=== PATIENT | female | born 1930 | race Caucasian/White ===

== ENCOUNTER 2017-08-11 12:30 | Inpatient (IN) | payer OTHER, MEDICAID ==
[~2017-08-11] VITALS: Ht 160 cm; Wt 55.9 kg
[2017-08-11 14:57] LABS: BASOPHIL % 0.6 % (0-2)
[2017-08-11 14:59] LABS: CALCIUM 8.9 mg/dL (8.5-10.1); CARBON DIOXIDE 22.2 mmol/L (21-32); CHLORIDE SERUM 108 mmol/L (98-107); CREATININE SERUM 0.8 mg/dL (0.6-1.0); GLUCOSE SERUM 117 mg/dL (74-106); POTASSIUM SERUM 4.3 mmol/L (3.5-5.1); SODIUM SERUM 140 mmol/L (136-145)
[2017-08-11 15:03] LABS: ALKALINE PHOSPHATASE 148 U/L (46-116); ALT/SGPT 29 U/L (14-59); AST/SGOT 47 U/L (15-37); BILIRUBIN TOTAL 0.6 mg/dL (0.20-1.00); CHOLESTEROL 146 mg/dL (<200); HDL CHOLESTEROL 61 mg/dL (40-60); PHOSPHOROUS 3.8 mg/dL (2.5-4.9); TOTAL PROTEIN, SERUM 6.7 g/dL (6.4-8.2); URIC ACID 4.1 mg/dL (2.6-6.0)
[2017-08-11 15:04] LABS: PLATELET COUNT 52 x10^3mcL (130-400); RED CELL DISTRIBUTION WIDTH 16.9 % (11.5-14.5)
[2017-08-11 16:34] LABS: FREE T4 0.94 ng/dL (0.76-1.46); FREE THYROXINE INDEX 2.3 ug/dL (1.4-4.5); T3 TOTAL 0.95 ng/mL; T4(THYROXINE) 7.1 ug/dL (4.7-13.3)
[2017-08-11] MEDS ORDERED: LISINOPRIL10 MG PO (16:47)
[2017-08-11] MEDS ORDERED: ADVIL200 MG PO (16:47)
[2017-08-11 20:00] VITALS: BP 185/58
[2017-08-11 22:27] VITALS: BP 189/67
[2017-08-11 23:49] VITALS: BP 102/42
[2017-08-12] VITALS (8 sets, daily range): BP systolic 101–148; BP diastolic 46–63
[2017-08-12 07:16] LABS: CALCIUM 8.4 mg/dL (8.5-10.1); CHLORIDE SERUM 109 mmol/L (98-107); CREATININE SERUM 0.9 mg/dL (0.6-1.0); GLUCOSE SERUM 107 mg/dL (74-106); MAGNESIUM 1.9 mg/dL (1.8-2.4); PHOSPHOROUS 3.8 mg/dL (2.5-4.9); POTASSIUM SERUM 3.9 mmol/L (3.5-5.1); SODIUM SERUM 140 mmol/L (136-145)
[2017-08-12 07:40] LABS: BASOPHIL % 0.5 % (0-2)
[2017-08-12 07:41] LABS: RED CELL DISTRIBUTION WIDTH 16.6 % (11.5-14.5)
[2017-08-12 07:43] LABS: PLATELET COUNT 49 x10^3mcL (130-400)
[2017-08-13 05:40] VITALS: BP 138/57
[2017-08-13 06:00] LABS: BASOPHIL % 0.6 % (0-2)
[2017-08-13 06:17] LABS: PLATELET COUNT 67 x10^3mcL (130-400); RED CELL DISTRIBUTION WIDTH 16.9 % (11.5-14.5)
[2017-08-13 06:23] LABS: CALCIUM 8.6 mg/dL (8.5-10.1); CARBON DIOXIDE 22.6 mmol/L (21-32); CHLORIDE SERUM 109 mmol/L (98-107); GLUCOSE SERUM 99 mg/dL (74-106); POTASSIUM SERUM 3.6 mmol/L (3.5-5.1); SODIUM SERUM 142 mmol/L (136-145)
[2017-08-13 09:33] VITALS: BP 163/58
[2017-08-13 13:53] VITALS: BP 158/55
[2017-08-13 16:19] VITALS: BP 157/61
[2017-08-13 21:44] VITALS: BP 169/64
[2017-08-14 05:35] VITALS: BP 134/61
[2017-08-14 06:15] LABS: BASOPHIL % 0.4 % (0-2)
[2017-08-14 06:21] LABS: CALCIUM 8.6 mg/dL (8.5-10.1); CHLORIDE SERUM 107 mmol/L (98-107); CREATININE SERUM 1.1 mg/dL (0.6-1.0); GLUCOSE SERUM 106 mg/dL (74-106); PLATELET COUNT 64 x10^3mcL (130-400); RED CELL DISTRIBUTION WIDTH 16.5 % (11.5-14.5); SODIUM SERUM 140 mmol/L (136-145)
[2017-08-14 09:11] VITALS: BP 144/58
[2017-08-14] MEDS ORDERED: ZES20 PO (09:53)
[2017-08-14] MEDS ORDERED: ALD50 PO (09:53)
[2017-08-14] MEDS ORDERED: TRAZODONE50 M1 PO (11:04)
[2017-08-14] MEDS ORDERED: NORCO1 TA2 PO (11:04)
[2017-08-14 14:03] VITALS: BP 138/59
[2017-08-14 14:28] VITALS: BP 138/59
== END 2017-08-14 15:10 | disposition home health service (06) | DRG 432 ==
LOC: ED 12:30 → DU 14:50 → ED 14:55 → DU 15:47
PROVIDERS: Emergency Medicine; ADMIT Family Medicine
DX: K74.69 Other cirrhosis of liver (principal); N17.0 Acute kidney failure with tubular necrosis; I50.43 Acute on chronic combined systolic (congestive) and diastolic (congestive) heart failure; B19.9 Unspecified viral hepatitis without hepatic coma; R18.8 Other ascites; E44.0 Moderate protein-calorie malnutrition; I11.0 Hypertensive heart disease with heart failure; I16.0 Hypertensive urgency; D69.59 Other secondary thrombocytopenia; D64.9 Anemia, unspecified; R73.03 Prediabetes; Z68.21 Body mass index [BMI] 21.0-21.9, adult; Z95.0 Presence of cardiac pacemaker
CPT/HCPCS: 82962; 83880; 84439; J0360; J1885; J1940; J7030; J7050; P9035; Q0163

== ENCOUNTER 2017-08-16 07:23 | Emergency (ER) | payer OTHER, MEDICAID ==
[~2017-08-16] VITALS: Ht 152.4 cm; Wt 55.8 kg
[~2017-08-16 07:23] MED LIST: ADVIL200 MG PO; ALD50 PO; LISINOPRIL10 MG PO; NORCO1 TA2 PO; TRAZODONE50 M1 PO; ZES20 PO
[2017-08-16 08:47] LABS: BASOPHIL % 0.5 % (0-2); PLATELET COUNT 63 x10^3mcL (130-400); RED CELL DISTRIBUTION WIDTH 16.5 % (11.5-14.5)
[2017-08-16 08:51] LABS: T4(THYROXINE) 8.8 ug/dL (4.7-13.3)
[2017-08-16 09:04] LABS: microscopic required? NO
[2017-08-16 09:21] LABS: UA SPECIFIC GRAVITY <=1.005 (1.005-1.035); urine erythrocyte NEGATIVE (NEGATIVE)
[2017-08-16 12:20] VITALS: BP 136/59
== END 2017-08-16 12:20 | disposition home or self-care (01) ==
LOC: ED 07:23
PROVIDERS: Emergency Medicine
DX: K74.60 Unspecified cirrhosis of liver (principal); D69.6 Thrombocytopenia, unspecified; I10 Essential (primary) hypertension; H54.42 Blindness, left eye, normal vision right eye; Z95.0 Presence of cardiac pacemaker; Z90.89 Acquired absence of other organs
CPT/HCPCS: J1885

== ENCOUNTER 2018-08-04 11:39 | Inpatient (IN) | payer OTHER, MEDICAID ==
[~2018-08-04] VITALS: Ht 154.9 cm; Wt 59.1 kg
[2018-08-04 12:07] VITALS: Ht 154.9 cm; Wt 59.1 kg
[2018-08-04 12:53] LABS: BASOPHIL % 0.6 % (0-2)
[2018-08-04 13:01] LABS: CALCIUM 8.7 mg/dL (8.5-10.1); CARBON DIOXIDE 24.7 mmol/L (21-32); CHLORIDE SERUM 102 mmol/L (98-107); CREATININE SERUM 1.1 mg/dL (0.6-1.0); GLUCOSE SERUM 150 mg/dL (74-106); SODIUM SERUM 129 mmol/L (136-145)
[2018-08-04 13:07] LABS: ALKALINE PHOSPHATASE 134 U/L (46-116); ALT/SGPT 20 U/L (14-59); AST/SGOT 39 U/L (15-37); BILIRUBIN TOTAL 0.9 mg/dL (0.20-1.00); LIPASE 269 IU/L (73-393); TOTAL PROTEIN, SERUM 6.8 g/dL (6.4-8.2)
[2018-08-04 13:08] LABS: ALBUMIN 2.8 g/dL (3.4-5.0)
[2018-08-04 13:19] LABS: PLATELET COUNT 86 x10^3mcL (130-400); RED CELL DISTRIBUTION WIDTH 17.7 % (11.5-14.5)
[2018-08-04 14:11] LABS: UA SPECIFIC GRAVITY 1.015 (1.005-1.035); microscopic required? YES; urine erythrocyte TRACE (NEGATIVE)
[2018-08-04] MEDS ORDERED: LASIX40 MG PO (14:11)
[2018-08-04 14:32] VITALS: BP 144/57
[2018-08-04 14:56] LABS: MAGNESIUM 2.1 mg/dL (1.8-2.4); PHOSPHOROUS 3.8 mg/dL (2.5-4.9)
[2018-08-04 15:02] LABS: CHOLESTEROL/HDL RATIO 2.5
[2018-08-04 15:04] LABS: T3 TOTAL 0.79 ng/mL
[2018-08-04 15:10] LABS: FREE T4 1.02 ng/dL (0.76-1.46); FREE THYROXINE INDEX 2.2 ug/dL (1.4-4.5); T4(THYROXINE) 6.8 ug/dL (4.7-13.3)
[2018-08-04 16:47] LABS: AMPHETAMINE QUAL UR NONE DETECTED (See below)
[2018-08-04 17:11] VITALS: BP 136/53
[2018-08-04 21:38] VITALS: BP 154/74
[2018-08-05] VITALS (11 sets, daily range): BP systolic 112–150; BP diastolic 40–65
[2018-08-05 06:07] LABS: BASOPHIL % 0.6 % (0-2)
[2018-08-05 06:33] LABS: CALCIUM 8.2 mg/dL (8.5-10.1); CHLORIDE SERUM 103 mmol/L (98-107); CREATININE SERUM 1.2 mg/dL (0.6-1.0); GLUCOSE SERUM 94 mg/dL (74-106); PHOSPHOROUS 3.9 mg/dL (2.5-4.9); PLATELET COUNT 68 x10^3mcL (130-400); POTASSIUM SERUM 4.9 mmol/L (3.5-5.1); RED CELL DISTRIBUTION WIDTH 17.7 % (11.5-14.5); SODIUM SERUM 132 mmol/L (136-145)
[2018-08-05 17:50] LABS: APPEARANCE FLUID BLOODY; SOURCE FLUID PARACENTESIS
[2018-08-05 17:51] LABS: COLOR FLUID RED; WBC FLUID 350 /cumm
[2018-08-05 17:54] LABS: LYMPHOCYTE FLUID 86 %; MONOCYTE FLUID 9 %; RBC FLUID 244000 /cumm
[2018-08-06 05:37] VITALS: BP 109/69
[2018-08-06 06:27] LABS: CALCIUM 8.3 mg/dL (8.5-10.1); CARBON DIOXIDE 20.7 mmol/L (21-32); CHLORIDE SERUM 104 mmol/L (98-107); CREATININE SERUM 1.2 mg/dL (0.6-1.0); GLUCOSE SERUM 88 mg/dL (74-106); PHOSPHOROUS 3.6 mg/dL (2.5-4.9); SODIUM SERUM 133 mmol/L (136-145)
[2018-08-06 06:34] LABS: BASOPHIL % 0.5 % (0-2)
[2018-08-06 06:46] LABS: PLATELET COUNT 70 x10^3mcL (130-400); RED CELL DISTRIBUTION WIDTH 17.7 % (11.5-14.5)
[2018-08-06 08:24] VITALS: BP 120/41
[2018-08-06] MEDS ORDERED: KEFLEX500 M1 PO (13:29)
[2018-08-06 13:45] VITALS: BP 120/41
== END 2018-08-06 14:30 | disposition home health service (06) | DRG 435 ==
LOC: ED 11:39 → MU 13:28
PROVIDERS: Emergency Medicine; Internal Medicine
DX: C22.0 Liver cell carcinoma (principal); N17.0 Acute kidney failure with tubular necrosis; J96.01 Acute respiratory failure with hypoxia; I50.33 Acute on chronic diastolic (congestive) heart failure; I81 Portal vein thrombosis; E87.1 Hypo-osmolality and hyponatremia; E44.0 Moderate protein-calorie malnutrition; R18.8 Other ascites; L03.115 Cellulitis of right lower limb; K76.81 Hepatopulmonary syndrome; K74.69 Other cirrhosis of liver; D69.59 Other secondary thrombocytopenia; D64.9 Anemia, unspecified; H54.62 Unqualified visual loss, left eye, normal vision right eye; Z95.0 Presence of cardiac pacemaker; Z68.21 Body mass index [BMI] 21.0-21.9, adult
CPT/HCPCS: 36600; 49083; 83880; 84439; 88344; C1729; J0696; J1940; J7030; J7050; P9047; Q0092

== ENCOUNTER 2018-08-25 11:23 | Emergency (ER) | payer OTHER, MEDICAID ==
[~2018-08-25] VITALS: Ht 152.4 cm; Wt 54.4 kg
[~2018-08-25 11:23] MED LIST changes: +KEFLEX500 M1 PO; +LASIX40 MG PO
[2018-08-25 11:30] VITALS: Ht 152.4 cm; Wt 54.4 kg
[2018-08-25 13:14] LABS: BASOPHIL % 0.9 % (0-2)
[2018-08-25 13:15] LABS: PLATELET COUNT 64 x10^3mcL (130-400); RED CELL DISTRIBUTION WIDTH 16.9 % (11.5-14.5)
[2018-08-25 13:29] LABS: CALCIUM 8.5 mg/dL (8.5-10.1); CHLORIDE SERUM 111 mmol/L (98-107); CREATININE SERUM 1.3 mg/dL (0.6-1.0); GLUCOSE SERUM 116 mg/dL (74-106); POTASSIUM SERUM 5.1 mmol/L (3.5-5.1); SODIUM SERUM 140 mmol/L (136-145)
[2018-08-25 13:34] LABS: ALKALINE PHOSPHATASE 163 U/L (46-116); ALT/SGPT 33 U/L (14-59); AST/SGOT 62 U/L (15-37); BILIRUBIN TOTAL 0.57 mg/dL (0.20-1.00); TOTAL PROTEIN, SERUM 6.8 g/dL (6.4-8.2)
[2018-08-25 13:35] LABS: ALBUMIN 2.7 g/dL (3.4-5.0)
[2018-08-25 15:20] VITALS: BP 129/59
== END 2018-08-25 15:30 | disposition home or self-care (01) ==
LOC: ED 11:23
PROVIDERS: Emergency Medicine
DX: K70.31 Alcoholic cirrhosis of liver with ascites (principal); I10 Essential (primary) hypertension; Z95.0 Presence of cardiac pacemaker; Z90.89 Acquired absence of other organs; Z88.6 Allergy status to analgesic agent
CPT/HCPCS: 49082; J2001; J7040; Q0092

== ENCOUNTER 2018-09-07 09:22 | Observation (INO) | payer OTHER, MEDICAID ==
[~2018-09-07] VITALS: Ht 152.4 cm; Wt 58.1 kg
[2018-09-07 09:38] VITALS: Ht 152.4 cm; Wt 58.1 kg
[2018-09-07 10:38] LABS: BASOPHIL % 0.9 % (0-2)
[2018-09-07 10:41] LABS: PLATELET COUNT 55 x10^3mcL (130-400); RED CELL DISTRIBUTION WIDTH 16.9 % (11.5-14.5)
[2018-09-07 10:51] LABS: CALCIUM 8.5 mg/dL (8.5-10.1); CARBON DIOXIDE 17.7 mmol/L (21-32); CHLORIDE SERUM 107 mmol/L (98-107); CREATININE SERUM 1.3 mg/dL (0.6-1.0); GLUCOSE SERUM 117 mg/dL (74-106); POTASSIUM SERUM 4.9 mmol/L (3.5-5.1); SODIUM SERUM 135 mmol/L (136-145)
[2018-09-07 10:55] LABS: ALKALINE PHOSPHATASE 156 U/L (46-116); ALT/SGPT 29 U/L (14-59); AST/SGOT 49 U/L (15-37); BILIRUBIN TOTAL 0.6 mg/dL (0.20-1.00); TOTAL PROTEIN, SERUM 6.4 g/dL (6.4-8.2)
[2018-09-07 10:56] LABS: ALBUMIN 2.4 g/dL (3.4-5.0)
[2018-09-07 11:54] LABS: microscopic required? YES; urine erythrocyte 1+ (NEGATIVE)
[2018-09-07 13:10] VITALS: BP 158/52
[2018-09-07 16:38] VITALS: BP 127/42
[2018-09-07 20:28] VITALS: BP 106/47
[2018-09-08 05:59] VITALS: BP 107/54
[2018-09-08 06:18] LABS: CALCIUM 7.9 mg/dL (8.5-10.1); CARBON DIOXIDE 17.8 mmol/L (21-32); CHLORIDE SERUM 113 mmol/L (98-107); CREATININE SERUM 1.4 mg/dL (0.6-1.0); GLUCOSE SERUM 117 mg/dL (74-106); MAGNESIUM 2.3 mg/dL (1.8-2.4); POTASSIUM SERUM 5.5 mmol/L (3.5-5.1); SODIUM SERUM 141 mmol/L (136-145)
[2018-09-08 08:45] VITALS: BP 104/53
[2018-09-08 12:55] VITALS: BP 114/65
[2018-09-08 13:00] VITALS: BP 114/65
== END 2018-09-08 13:22 | disposition home or self-care (01) | DRG 433 ==
LOC: ED 09:22 → DU 11:29
PROVIDERS: Emergency Medicine; Internal Medicine Pulmonary Disease
PROC: 0W9G3ZZ Drainage of Peritoneal Cavity, Percutaneous Approach (ICD-10-PCS; principal; 2018-09-07)
DX: K74.60 Unspecified cirrhosis of liver (principal); N39.0 Urinary tract infection, site not specified; K76.6 Portal hypertension; E46 Unspecified protein-calorie malnutrition; R18.8 Other ascites; I12.9 Hypertensive chronic kidney disease with stage 1 through stage 4 chronic kidney disease, or unspecified chronic kidney disease; N18.2 Chronic kidney disease, stage 2 (mild); D63.1 Anemia in chronic kidney disease; D69.59 Other secondary thrombocytopenia; Z68.24 Body mass index [BMI] 24.0-24.9, adult; Z95.0 Presence of cardiac pacemaker; R16.0 Hepatomegaly, not elsewhere classified
CPT/HCPCS: 49083; C1729; G0378; J0696; J2001; J3010; J7030; P9047; Q0092

== ENCOUNTER 2018-09-24 14:28 | Emergency (ER) | payer OTHER, MEDICAID ==
[~2018-09-24] VITALS: Ht 152.4 cm; Wt 58.1 kg
[2018-09-24 15:43] LABS: BASOPHIL % 0.8 % (0-2); PLATELET COUNT 63 x10^3mcL (130-400)
[2018-09-24 15:46] LABS: CALCIUM 8.3 mg/dL (8.5-10.1); CARBON DIOXIDE 23.1 mmol/L (21-32); CHLORIDE SERUM 105 mmol/L (98-107); CREATININE SERUM 1.4 mg/dL (0.6-1.0); GLUCOSE SERUM 125 mg/dL (74-106); POTASSIUM SERUM 4.8 mmol/L (3.5-5.1); SODIUM SERUM 135 mmol/L (136-145)
[2018-09-24 15:51] LABS: ALBUMIN 2.4 g/dL (3.4-5.0); ALKALINE PHOSPHATASE 160 U/L (46-116); ALT/SGPT 25 U/L (14-59); AST/SGOT 47 U/L (15-37); BILIRUBIN TOTAL 0.5 mg/dL (0.20-1.00); LIPASE 228 IU/L (73-393); TOTAL PROTEIN, SERUM 6.4 g/dL (6.4-8.2)
[2018-09-24 20:06] LABS: APPEARANCE FLUID HAZY; COLOR FLUID YELLOW; LYMPHOCYTE FLUID 93 %; RBC FLUID 453 /cumm; SOURCE FLUID PERITONEAL; WBC FLUID 68 /cumm
[2018-09-24 20:08] VITALS: BP 127/61
== END 2018-09-24 20:08 | disposition home or self-care (01) ==
LOC: ED 14:28
PROVIDERS: Emergency Medicine
DX: R18.8 Other ascites (principal); I10 Essential (primary) hypertension; Z90.49 Acquired absence of other specified parts of digestive tract; Z98.890 Other specified postprocedural states; Z88.6 Allergy status to analgesic agent
CPT/HCPCS: 49083; J2001; P9045; Q0092

== ENCOUNTER 2018-10-11 13:35 | Emergency (ER) | payer OTHER, MEDICAID ==
[~2018-10-11] VITALS: Ht 152.4 cm; Wt 57.6 kg
[2018-10-11 13:45] VITALS: Ht 152.4 cm; Wt 57.6 kg
[2018-10-11 15:10] VITALS: BP 123/61
== END 2018-10-11 15:10 | disposition home or self-care (01) ==
LOC: ED 13:35
DX: R18.8 Other ascites (principal); I10 Essential (primary) hypertension; Z90.49 Acquired absence of other specified parts of digestive tract; Z98.890 Other specified postprocedural states; Z88.6 Allergy status to analgesic agent
CPT/HCPCS: 49083

== ENCOUNTER 2018-10-26 10:25 | Emergency (ER) | payer MEDICARE, MEDICAID ==
[~2018-10-26] VITALS: Ht 147.3 cm; Wt 57.2 kg
[2018-10-26 10:30] VITALS: Ht 147.3 cm; Wt 57.2 kg
[2018-10-26 14:23] VITALS: BP 119/59
== END 2018-10-26 14:23 | disposition home or self-care (01) ==
LOC: ED 10:25
DX: K70.31 Alcoholic cirrhosis of liver with ascites (principal); I10 Essential (primary) hypertension; Z95.0 Presence of cardiac pacemaker; Z90.89 Acquired absence of other organs; Z90.49 Acquired absence of other specified parts of digestive tract; Z88.6 Allergy status to analgesic agent
CPT/HCPCS: 49083; Q0092

== ENCOUNTER 2018-11-07 10:07 | Emergency (ER) | payer OTHER, MEDICAID ==
[~2018-11-07] VITALS: Ht 152.4 cm; Wt 52.2 kg
[2018-11-07 10:28] VITALS: Ht 152.4 cm; Wt 52.2 kg
[2018-11-07 12:48] VITALS: BP 126/58
== END 2018-11-07 12:40 | disposition home or self-care (01) ==
LOC: ED 10:07
DX: S70.02XA Contusion of left hip, initial encounter (principal); K74.60 Unspecified cirrhosis of liver; R18.8 Other ascites; I10 Essential (primary) hypertension; Z88.6 Allergy status to analgesic agent; Z90.49 Acquired absence of other specified parts of digestive tract; Z98.890 Other specified postprocedural states; W19.XXXA Unspecified fall, initial encounter; Y93.89 Activity, other specified; Y92.89 Other specified places as the place of occurrence of the external cause; Y99.8 Other external cause status
CPT/HCPCS: Q0162

== ENCOUNTER 2018-12-09 11:51 | Emergency (ER) | payer OTHER, MEDICAID ==
[~2018-12-09] VITALS: Ht 154.9 cm; Wt 54.4 kg
[2018-12-09 12:00] VITALS: Ht 154.9 cm; Wt 54.4 kg
[2018-12-09 13:03] LABS: BASOPHIL % 1.2 % (0-2); PLATELET COUNT 67 x10^3mcL (130-400); RED CELL DISTRIBUTION WIDTH 18.3 % (11.5-14.5)
[2018-12-09 13:08] LABS: CALCIUM 8.4 mg/dL (8.5-10.1); CARBON DIOXIDE 18.2 mmol/L (21-32); CHLORIDE SERUM 108 mmol/L (98-107); CREATININE SERUM 1.8 mg/dL (0.6-1.0); GLUCOSE SERUM 139 mg/dL (74-106); POTASSIUM SERUM 5.2 mmol/L (3.5-5.1); SODIUM SERUM 135 mmol/L (136-145)
[2018-12-09 13:13] LABS: ALKALINE PHOSPHATASE 246 U/L (46-116); ALT/SGPT 35 U/L (14-59); AST/SGOT 54 U/L (15-37); BILIRUBIN TOTAL 0.46 mg/dL (0.20-1.00); LIPASE 499 IU/L (73-393); TOTAL PROTEIN, SERUM 6.6 g/dL (6.4-8.2)
[2018-12-09 13:29] LABS: ALBUMIN 2.3 g/dL (3.4-5.0)
[2018-12-09 15:59] VITALS: BP 123/58
== END 2018-12-09 15:59 | disposition home or self-care (01) ==
LOC: ED 11:51
PROVIDERS: Emergency Medicine
DX: K70.31 Alcoholic cirrhosis of liver with ascites (principal); D64.9 Anemia, unspecified; I10 Essential (primary) hypertension; Z90.49 Acquired absence of other specified parts of digestive tract; Z88.6 Allergy status to analgesic agent; Z96.641 Presence of right artificial hip joint
CPT/HCPCS: 36415; 49083; J2001; Q0092

== ENCOUNTER 2018-12-22 11:33 | Inpatient (IN) | payer OTHER, MEDICAID ==
[~2018-12-22] VITALS: Ht 149.9 cm; Wt 53.6 kg
[2018-12-22 11:37] VITALS: Ht 149.9 cm; Wt 53.6 kg
--- NOTE | 2018-12-22 11:42 | NUR ---
PT SENT TO LOBBY TO WAIT FOR AVAILABLE BED. NO DISTRESS NOTED AND PT IS ALERT AND ORIENTED
--- NOTE | 2018-12-22 13:16 | NUR ---
PT PRESENTS TO ED WITH C/O ABDOMINAL PAIN FOR THE PAST 1 WEEK. STS THAT SHE HAS HERNIA NEAR THE UMBILICUS AND THAT THE ABDOMEN HAS BEEN SWELLING SINCE. STS FEELING BLOATED. DENIES PAIN ELSEWHERE. ABDOMEN IS DISTENDED AND FIRM. PATIENT IS BREATHING E/U, BILATERAL CHEST RISE. BED AT LOWEST POSITION. FAMILY AT BEDSIDE. AWAITING MSE
[2018-12-22 14:04] LABS: BASOPHIL % 0.6 % (0-2)
[2018-12-22 14:07] LABS: PLATELET COUNT 62 x10^3mcL (130-400); RED CELL DISTRIBUTION WIDTH 19.2 % (11.5-14.5)
[2018-12-22 14:14] LABS: ALKALINE PHOSPHATASE 225 U/L (46-116); ALT/SGPT 25 U/L (14-59); AST/SGOT 52 U/L (15-37); BILIRUBIN TOTAL 0.47 mg/dL (0.20-1.00); CARBON DIOXIDE 17.7 mmol/L (21-32); CHLORIDE SERUM 110 mmol/L (98-107); CREATININE SERUM 2.8 mg/dL (0.6-1.0); GLUCOSE SERUM 119 mg/dL (74-106); POTASSIUM SERUM 3.7 mmol/L (3.5-5.1); SODIUM SERUM 137 mmol/L (136-145); TOTAL PROTEIN, SERUM 6.4 g/dL (6.4-8.2)
[2018-12-22 14:24] LABS: ALBUMIN 2.2 g/dL (3.4-5.0)
[2018-12-22] MEDS ORDERED: TYLENOL325 M2 PO (16:16)
--- NOTE | 2018-12-22 16:24 | NUR ---
PT RESTING ON ED GURNEY. PT EASILY AROUSABLE. FAMILY AT BEDSIDE. NO SIGNS OF ACUTE DISTRESS.RESP E/U. PT ON FULL CM
[2018-12-22 16:29] LABS: MAGNESIUM 2.5 mg/dL (1.8-2.4); PHOSPHOROUS 4.8 mg/dL (2.5-4.9)
[2018-12-22 16:37] LABS: CHOLESTEROL/HDL RATIO 2.7
[2018-12-22 16:45] VITALS: BP 132/63
[2018-12-22 17:02] VITALS: BP 132/63
--- NOTE | 2018-12-22 17:16 | NUR ---
AAO TIMES 4. NO TELE. MED SURG. LUNGS CTA. NO SOB. O2 SAT ON RA. BS'S ACTIVE TIMES 4. THERE IS A PROTRUSION ON HER ABDOMEN THAT THE DTR SAYS IS A HERNIA SHES HAD FOR A YEAR. GAITAN WITH GENERALIZED WEAKNESS. PERIPHERAL PULSES PALPABLE. NO EDEMA. COOPERATIVE AND PLEASANT. DTR AT BEDSIDE SUPPORTIVE. NO C/O PAIN. IV SITE RIGHT HAND CDI.
--- NOTE | 2018-12-22 17:50 | NUR ---
DR JOSEPH PAGED FOR ORDERS, HE IS AWARE SHE NEEDS A DIET AND THAT SHE HAS A PACEMAKER, HE SAID HE WOULD DO ORDERS FOR HER.
--- NOTE | 2018-12-22 20:00 | NUR ---
PT A/A/O X4, FAMILY AT BEDSIDE. PT DENIES DIZZINESS AND HEADACHE. FINE CRACKLES NOTED ELOY BASES. BREATHING EVEN AND UNLABORED ON ROOM AIR. PRODUCTIVE COUGH NOTED. BREATHING EVEN AND UNLABORED ON ROOM AIR. DENIES CHEST PAIN AND PRESSURE. HYPOACTIVE BOWEL SOUNDS NOTED. ABD HARD AND DISTENDED. LUMP NOTED ON THE UMBILICAL AREA. IV HEPLOCK INTACT ON THE RIGHT FOREARM. MADE PT COMFORTABLE. PLACED CALL LIGHT WITH IN REACH. WILL CONTINUE TO MONITOR.
[2018-12-22 21:34] VITALS: BP 122/50
--- NOTE | 2018-12-23 01:39 | NUR ---
PT RESTING WITH EYES CLOSED. NO DISTRESS AND DISCOMFORT NOTED. WILL CONTINUE TO MONITOR.
--- NOTE | 2018-12-23 06:57 | NUR ---
PT QUIET AND RESTING. GETS OUT OF BREATH WHEN WALKING TO THE BATHROOM. SUGGESTED FOR PT TO USE BEDSIDE COMMODE. MADE PT COMFORTABLE. WILL ENDORSE TO THE AM NURSE ACCORDINGLY.
[2018-12-23 07:15] VITALS: BP 111/30
[2018-12-23 07:43] LABS: BASOPHIL % 0.4 % (0-2)
[2018-12-23 07:44] LABS: PLATELET COUNT 60 x10^3mcL (130-400); RED CELL DISTRIBUTION WIDTH 18.8 % (11.5-14.5)
[2018-12-23 07:46] LABS: CALCIUM 8.1 mg/dL (8.5-10.1); CARBON DIOXIDE 13.6 mmol/L (21-32); CHLORIDE SERUM 111 mmol/L (98-107); CREATININE SERUM 2.8 mg/dL (0.6-1.0); GLUCOSE SERUM 109 mg/dL (74-106); MAGNESIUM 2.5 mg/dL (1.8-2.4); PHOSPHOROUS 4.8 mg/dL (2.5-4.9); POTASSIUM SERUM 4.9 mmol/L (3.5-5.1); SODIUM SERUM 136 mmol/L (136-145)
--- NOTE | 2018-12-23 07:49 | NUR ---
AAO TIMES 4. TELE # 27 DEMAND PACER. LUNGS CTA BUL, FINE CRACKLES TO BASES. O2 SAT ON RA 100%. SOB WITH EXERTION. ABDOMEN DISTENDED. PERIPHERAL PULSES PALPABLE. NO EDEMA. NO C/O PAIN. VS'S STABLE.
[2018-12-23 09:00] VITALS: BP 90/58
[2018-12-23 09:15] VITALS: BP 90/58
--- NOTE | 2018-12-23 14:29 | NUR ---
SHE REQUESTED TO LEAVE AMA. DR JOSEPH CAME TO SEE HER AND SHE INSISTED SHE LEAVE AGAINTS MEDICAL ADVISE. DC'D SALINE LOCKS ANGIO INTACT. HER FAMILY WAS PRESENT, THEY SAID SHE LEAVES AMA EVERY WEEK AT HOSPITALS AFTER GETTING HER PARACENTESIS.
[2018-12-23 15:47] LABS: APPEARANCE FLUID HAZY; COLOR FLUID PALE YELLOW; LYMPHOCYTE FLUID 45 %; RBC FLUID 183 /cumm; SOURCE FLUID ASCITES; WBC FLUID 133 /cumm
[2018-12-23 15:49] LABS: MONOCYTE FLUID 38 %
== END 2018-12-23 14:18 | disposition left against medical advice (07) | DRG 432 ==
LOC: ED 11:33 → MU 15:41
PROVIDERS: Emergency Medicine; ADMIT Internal Medicine
PROC: 0W9G3ZZ Drainage of Peritoneal Cavity, Percutaneous Approach (ICD-10-PCS; principal; 2018-12-23)
DX: K74.69 Other cirrhosis of liver (principal); K76.7 Hepatorenal syndrome; J96.01 Acute respiratory failure with hypoxia; E43 Unspecified severe protein-calorie malnutrition; R18.8 Other ascites; N17.9 Acute kidney failure, unspecified; J98.11 Atelectasis; K75.81 Nonalcoholic steatohepatitis (NASH); B18.2 Chronic viral hepatitis C; N18.9 Chronic kidney disease, unspecified; D63.1 Anemia in chronic kidney disease; D69.59 Other secondary thrombocytopenia; J44.9 Chronic obstructive pulmonary disease, unspecified; Z96.641 Presence of right artificial hip joint; Z95.0 Presence of cardiac pacemaker; Z53.20 Procedure and treatment not carried out because of patient's decision for unspecified reasons
CPT/HCPCS: 49083; 83880; 87804; 94150; J0696; J2920; J7030; J7050; Q0092

== ENCOUNTER 2019-01-08 07:44 | Emergency (ER) | payer OTHER, MEDICAID | END 2019-01-08 11:49 | disposition home or self-care (01) | LOC: ED 07:44 ==